=== PATIENT | female | born 1965 | race Caucasian/White ===

== ENCOUNTER 2025-06-29 13:37 | Emergency (ER) | payer OTHER ==
[2025-06-29 14:03] VITALS: BP 167/52; PULSE 115; RESP 15; TEMP 102.7; BMI 26.4
[2025-06-29] MEDS ORDERED: ACETAMINOPHEN 500 MG TABLET (FP) ONE (14:16)
[2025-06-29] MEDS: ACETAMINOPHEN 325 MG TABLET (FP) PO ONE (14:35)
[2025-06-29] MEDS: LACTATED RINGERS SOLUTION 1,000 ML/1,000 ML INFUS.BAG IV STA (15:00)
[2025-06-29 15:23] LABS: ALK PHOS 93.0 U/L (45-117); CO2 21.0 mmol/L (21-32); CREATININE 0.9 mg/dl (0.6-1.3); GLUCOSE,RANDOM 317.0 mg/dl (74-106); SGOT/AST 18.0 U/L (15-37); SGPT/ALT 16.0 U/L (7-52); TOT PROT 6.9 g/dl (6.4-8.2)
[2025-06-29 15:34] LABS: MCHC 33.4 g/dl (32.2-35.5); MEAN CELL VOLUME 84.3 fl (79.4-94.8); MEAN PLT VOLUME 9.2 fl (9.4-12.3); RDW 11.9 % (12.4-16.4)
[2025-06-29] MEDS ORDERED: AZITHROMYCIN 500 MG TABLET ONE (15:35)
[2025-06-29] MEDS: AZITHROMYCIN 250 MG TABLET PO ONE (15:38)
[2025-06-29 16:31] LABS: EPITHELIAL CELLS 0-5 /hpf
[2025-06-29] MEDS: CEFTRIAXONE 1,000 MG in DEXTROSE 5%-WATER - 50 ML IVPB ONE (17:40)
== END 2025-06-29 20:50 | disposition home or self-care (01) ==
LOC: FER 13:37
PROC: 3E03329 Introduction of Other Anti-infective into Peripheral Vein, Percutaneous Approach (ICD-10-PCS; principal; 2025-06-29)
PROC: 3E0337Z Introduction of Electrolytic and Water Balance Substance into Peripheral Vein, Percutaneous Approach (ICD-10-PCS; 2025-06-29)
DX: J18.9 Pneumonia, unspecified organism (principal); N39.0 Urinary tract infection, site not specified; R50.9 Fever, unspecified; M79.10 Myalgia, unspecified site; R05.9 Cough, unspecified; R11.2 Nausea with vomiting, unspecified; R00.0 Tachycardia, unspecified
CPT/HCPCS: 36415; 71045-TC-FY; 80053; 81003; 81015; 82962; 85025; 87086; 87637-QW; 87899